=== PATIENT | male | born 1950 | race Caucasian/White ===

== ENCOUNTER 2019-05-24 13:42 | Emergency (ER) | payer MEDICARE, OTHER, MEDICAID ==
[2019-05-24] MEDS ORDERED: Lidocaine 1% 20 ML MDV ONE (13:46)
[2019-05-24 13:54] VITALS: BP 97/49; PULSE 89
[2019-05-24] MEDS ORDERED: Lidocaine 1% 30 ML SDV INJECT ONE (14:00)
[2019-05-24] MEDS ORDERED: Bacitracin/Neomycin/Polymyxin B Oint 0.9 GM U/D Packet ONE (14:13)
--- NOTE | 2019-05-24 14:42 | EDM.PDOC ---
ED HPI GENERAL MEDICAL PROBLEM - General Chief Complaint: Laceration Stated Complaint: laceration Time Seen by Provider: 05/24/19 13:54 Source of Information: Reports: Patient, [facility] Records History Limitations: Reports: No Limitations - History of Present Illness INITIAL COMMENTS - FREE TEXT/NARRATIVE: Patient presents with laceration under his left second toe. He is unsure what happened, has neuropathy in his feet and does not know what he hit to open the toe up. Staff noted that his foot was bleeding. Had laceration on this toe recently and staff reports had just had sutures out and it was healing. Is on Coumadin, [facility] staff was unable to get the bleeding to stop prior to him coming here. EMS was called for transport. He denies pain or injury elsewhere. Onset: Today, Sudden Duration: Minutes: Location: Reports: Lower Extremity, Right Severity: Mild Associated Symptoms: Reports: No Other Symptoms Right Foot Pain Score (Numeric/FACES): 4 - Related Data Allergies Allergy/AdvReac Type Severity Reaction Status Date / Time levofloxacin [From Levaquin] Allergy Cannot Verified 05/24/19 13:21 Remember Home Meds: Home Meds Lisinopril 5 mg PO DAILY 09/23/15 [History] Montelukast [Singulair] 10 mg PO BEDTIME 09/23/15 [History] ARIPiprazole [Aripiprazole] 10 mg PO DAILY 05/24/19 [History] Acetaminophen [Tylenol Extra Strength] 1,000 mg PO Q8H PRN 05/24/19 [History] Aspirin [Aspirin EC] 325 mg PO DAILY 05/24/19 [History] Bisacodyl [Dulcolax] 5 - 10 mg PO DAILY PRN 05/24/19 [History] Dextrose [Glutose 15] 15 - 20 g PO ASDIRECTED PRN 05/24/19 [History] Escitalopram [Lexapro] 10 mg PO DAILY 05/24/19 [History] Glucagon,Human Recombinant [Glucagon Emergency Kit] 1 mg IM DAILY PRN 05/24/19 [ History] Liraglutide [Victoza] 1.2 ml SQ DAILY 05/24/19 [History] Menthol [Biofreeze] 1 applic TOP QID PRN 05/24/19 [History] Polyethylene Glycol 3350 [MiraLAX] 17 gm PO DAILY 05/24/19 [History] Simvastatin 20 mg PO BEDTIME 05/24/19 [History] Warfarin Sodium 7.5 mg PO WESA 05/24/19 [History] Warfarin Sodium 10 mg PO SUMOTUTHFR 05/24/19 [History] busPIRone HCl [busPIRone] 30 mg PO BID 05/24/19 [History] Past Medical History HEENT History: Reports: Cataract Cardiovascular History: Reports: Heart Failure, High Cholesterol, Hypertension Respiratory History: Reports: Asthma Gastrointestinal History: Reports: Chronic Constipation Other Gastrointestinal History: incontinence Neurological History: Reports: CVA, Neuropathy, Diabetic, Speech Problems Other Neuro History: L sided weakness Psychiatric History: Reports: Anxiety, Bipolar, Dementia, Depression, Psychosis , Schizophrenia Endocrine/Metabolic History: Reports: Diabetes, Type II, Obesity/BMI 30+ Oncologic (Cancer) History: Reports: Other (See Below) Other Oncologic History: malignant neoplasm Dermatologic History: Reports: Venous Stasis Dermatitis Other Dermatologic History: LLE - Infectious Disease History Infectious Disease History: Reports: Influenza, MRSA - Past Surgical History HEENT Surgical History: Reports: None Cardiovascular Surgical History: Reports: None Respiratory Surgical History: Reports: None GI Surgical History: Reports: None Endocrine Surgical History: Reports: None Neurological Surgical History: Reports: None Oncologic Surgical History: Reports: None Dermatological Surgical History: Reports: None Social & Family History - Family History Family Medical History: Noncontributory - Tobacco Use Smoking Status *Q: Never Smoker - Caffeine Use Caffeine Use: Reports: Coffee - Recreational Drug Use Recreational Drug Use: No - Living Situation & Occupation Occupation: Retired ED ROS GENERAL - Review of Systems Review Of Systems: ROS reveals no pertinent complaints other than HPI. ED EXAM, SKIN/RASH Exam: See Below Exam Limited By: No Limitations General Appearance: Alert, WD/WN, No Apparent Distress Neurological: Alert, Oriented Skin: Wound/Incision (has 2.5 cm laceration to bottom of right second toe. Oozing continuously. Patient has minimal movement of his toes per his norm) Characteristics: Linear ED SKIN PROCEDURES - Laceration/Wound Repair Right Toe - Second Appearance: Subcutaneous, Linear, Clean Distal NVT: No Tendon Injury Anesthetic Type: Local Local Anesthesia - Lidocaine (Xylocaine): 1% Plain Local Anesthetic Volume: 3cc Skin Prep: Other (saf-clens) Exploration/Debridement/Repair: Wound Explored, Explored to Base Closed with: Sutures Lac/Wound length In cm: 2.5 Suture Size: 4-0 # of Sutures: 5 Suture Type: Nylon, Interrupted, Simple Sterile Dressing Applied: Provider Tetanus Status Addressed: Yes Course - Vital Signs Last Recorded V/S: Last Vital Signs Temp 97.9 F 05/24/19 13:48 Pulse 89 05/24/19 13:48 Resp 20 05/24/19 13:48 BP 97/49 L 05/24/19 13:48 Pulse Ox 98 05/24/19 13:48 - Orders/Labs/Meds Meds: Medications Discontinued Medications Generic Name Dose Route Start Last Admin Trade Name Freq PRN Reason Stop Dose Admin Lidocaine HCl Confirm 05/24/19 13:46 Xylocaine 1% Administered 05/24/19 13:47 Dose 20 ml .ROUTE .STK-MED ONE Neomycin/Polymyxin/Bacitracin Confirm 05/24/19 14:13 Triple Antibiotic Oint Administered 05/24/19 14:14 Dose 1 each .ROUTE .STK-MED ONE Departure - Departure Time of Disposition: 14:44 Disposition: Home, Self-Care 01 Condition: Good Clinical Impression: Broken skin, Laceration of second toe of right foot - Discharge Information *PRESCRIPTION DRUG MONITORING PROGRAM REVIEWED*: No *COPY OF PRESCRIPTION DRUG MONITORING REPORT IN PATIENT GARY: No Additional Instructions: 1. Elevate foot 2. Continue to assess CMS to toe 3. Ice to bottom of foot 4. Keep wound clean and dry 5. Sutures out in 10 days 6. Call with questions or concerns.
[2019-05-24] MEDS ORDERED: Bacitracin/Neomycin/Polymyxin B Oint 0.9 GM U/D Packet TOP ONE (14:47)
== END 2019-05-24 15:20 | disposition home or self-care (01) ==
LOC: CC.ED 13:42
DX: S91.114A Laceration without foreign body of right lesser toe(s) without damage to nail, initial encounter (principal); I11.0 Hypertensive heart disease with heart failure; I50.9 Heart failure, unspecified; E78.00 Pure hypercholesterolemia, unspecified; J45.909 Unspecified asthma, uncomplicated; E11.36 Type 2 diabetes mellitus with diabetic cataract; H26.9 Unspecified cataract; E11.40 Type 2 diabetes mellitus with diabetic neuropathy, unspecified; F32.9 Major depressive disorder, single episode, unspecified; E66.9 Obesity, unspecified; Z88.1 Allergy status to other antibiotic agents; Z79.82 Long term (current) use of aspirin; Z68.43 Body mass index [BMI] 50.0-59.9, adult; Z79.01 Long term (current) use of anticoagulants; Z86.73 Personal history of transient ischemic attack (TIA), and cerebral infarction without residual deficits; Z79.899 Other long term (current) drug therapy; Z79.84 Long term (current) use of oral hypoglycemic drugs; X58.XXXA Exposure to other specified factors, initial encounter
CPT/HCPCS: 12001; 99282; 99283; J2001

== ENCOUNTER 2021-03-21 10:10 | Emergency (ER) | payer MEDICARE, OTHER, MEDICAID ==
[2021-03-21 11:04] LABS: CHLORIDE,CL 100 mEq/L (98-106); SODIUM,NA 137 mEq/L (136-145)
[2021-03-21 11:36] VITALS: BP 138/74; PULSE 87
--- NOTE | 2021-03-21 11:59 | EDM.PDOC ---
ED HPI GENERAL MEDICAL PROBLEM - General Chief Complaint: Respiratory Problem Stated Complaint: SOB Time Seen by Provider: 03/21/21 10:50 Source of Information: Reports: Patient, Long Term Records, RN History Limitations: Reports: No Limitations. Denies: Respiratory Distress - History of Present Illness INITIAL COMMENTS - FREE TEXT/NARRATIVE: Bello is a 70 yo male who is brought into the ED via EMS from [facility] with concerns of low oxygen. They had said he wouldn't leave oxygen on via nasal canula and was dropping into the low 80's. Upon arrival he was 98% on 6 Liters per nasal canula. He denies any chest pain. States he feels his shortness of breath has worsened. Has history of shortness of breath. States the swelling on his legs seems to be getting worse as well. Does live a sedentary lifestyle and is unable to ambulate d/t morbid obesity. Renita Cuello did [facility] him [facility] at the [facility] and increased his Lasix to 40mg twice a day from once a day. - Related Data Allergies Allergy/AdvReac Type Severity Reaction Status Date / Time levofloxacin [From Levaquin] Allergy Cannot Verified 03/22/21 08:57 Remember Home Meds: Home Meds Lisinopril 5 mg PO DAILY 09/23/15 [History] Montelukast [Singulair] 10 mg PO BEDTIME 09/23/15 [History] Acetaminophen [Tylenol Extra Strength] 1,000 mg PO Q8H PRN 05/24/19 [History] Dextrose [Glutose 15] 15 - 20 g PO ASDIRECTED PRN 05/24/19 [History] Glucagon,Human Recombinant [Glucagon Emergency Kit] 1 mg IM DAILY PRN 05/24/19 [History] Liraglutide [Victoza] 1.8 ml SQ DAILY 05/24/19 [History] Menthol [Biofreeze] 1 applic TOP QID PRN 05/24/19 [History] Polyethylene Glycol 3350 [MiraLAX] 17 gm PO DAILY 05/24/19 [History] Simvastatin 20 mg PO BEDTIME 05/24/19 [History] Warfarin Sodium 7.5 mg PO WESA 05/24/19 [History] Warfarin Sodium 10 mg PO SUMOTUTHFR 05/24/19 [History] bisacodyL [Dulcolax] 5 - 10 mg PO DAILY PRN 05/24/19 [History] busPIRone HCl [busPIRone] 30 mg PO BID 05/24/19 [History] ARIPiprazole [Abilify] 20 mg PO DAILY 03/21/21 [History] Cyanocobalamin (Vitamin B-12) [Cyanocobalamin Injection] 1 ml IM ONETIME 03/05 02/22 [History] Furosemide [Lasix] 40 mg PO BID 03/21/21 [History] Insulin Aspart [NovoLOG] 35 units SUBCUT ACBREAKFAST 03/21/21 [History] Insulin Aspart [Novolog Flexpen] 35 units SUBCUT ACLUNCH 03/21/21 [History] Insulin Degludec [Tresiba] 70 units SUBCUT BID 03/21/21 [History] Insulin Lispro [HumaLOG] 40 mg SUBCUT BEDTIME 03/21/21 [History] [place] Carbonate [[place] Carbonate ER] 600 mg PO BEDTIME 03/21/21 [History] polyethylene glycoL 3350 [Gavilax] 8.5 gm PO ACDINNER 03/21/21 [History] Past Medical History HEENT History: Reports: Cataract Cardiovascular History: Reports: Heart Failure, High Cholesterol, Hypertension Respiratory History: Reports: Asthma Gastrointestinal History: Reports: Chronic Constipation Other Gastrointestinal History: incontinence Neurological History: Reports: CVA, Neuropathy, Diabetic, Speech Problems Other Neuro History: L sided weakness Psychiatric History: Reports: Anxiety, Bipolar, Dementia, Depression, Psychosis, Schizophrenia Endocrine/Metabolic History: Reports: Diabetes, Type II, Obesity/BMI 30+ Oncologic (Cancer) History: Reports: Other (See Below) Other Oncologic History: malignant neoplasm Dermatologic History: Reports: Venous Stasis Dermatitis Other Dermatologic History: LLE - Infectious Disease History Infectious Disease History: Reports: Influenza, MRSA - Past Surgical History HEENT Surgical History: Reports: None Cardiovascular Surgical History: Reports: None Respiratory Surgical History: Reports: None GI Surgical History: Reports: None Endocrine Surgical History: Reports: None Neurological Surgical History: Reports: None Oncologic Surgical History: Reports: None Dermatological Surgical History: Reports: None Social & Family History - Family History Family Medical History: No Pertinent Family History - Tobacco Use Tobacco Use Status *Q: Never Tobacco User Second Hand Smoke Exposure: No - Caffeine Use Caffeine Use: Reports: Coffee - Living Situation & Occupation Occupation: Retired ED ROS GENERAL - Review of Systems Review Of Systems: See Below Constitutional: Reports: Weakness, Fatigue. Denies: Fever, Chills HEENT: Reports: No Symptoms Respiratory: Reports: Shortness of Breath. Denies: Wheezing, Cough Cardiovascular: Reports: Edema. Denies: Chest Pain, Lightheadedness, Palpitations GI/Abdominal: Reports: No Symptoms : Reports: No Symptoms Musculoskeletal: Reports: No Symptoms Neurological: Reports: No Symptoms Psychiatric: Reports: No Symptoms ED EXAM, GENERAL - Physical Exam Exam: See Below Exam Limited By: No Limitations General Appearance: Alert, No Apparent Distress, Obese Ears: Normal External Exam, Hearing Grossly Normal Nose: Normal Inspection, No Blood Throat/Mouth: Normal Inspection, Normal Voice, No Airway Compromise Head: Atraumatic, Normocephalic Neck: Normal Inspection, Supple Respiratory/Chest: Decreased Breath Sounds. No: Respiratory Distress, Crackles, Rales, Rhonchi, Wheezing Cardiovascular: Regular Rate, Rhythm, No Murmur Extremities: Pedal Edema (3-4+), Redness (stasis dermatitis noted. ) Neurological: Alert, Normal Cognition Psychiatric: Normal Affect, Normal Mood Skin Exam: Warm, Dry. No: Erythema, Increased Warmth #1 Interpretation EKG Date: 03/21/21 Time: 10:25 Rhythm: NSR Kimball: Normal P-Wave: Present QRS: Normal ST-T: Normal QT: Normal Comparison: No Change Course - Vital Signs Last Recorded V/S: Last Vital Signs Temp 97.9 F 03/21/21 11:33 Pulse 87 03/21/21 11:33 Resp 20 03/21/21 11:33 BP 138/74 03/21/21 11:33 Pulse Ox 99 03/21/21 11:33 - Orders/Labs/Meds Orders: Active Orders 24 hr Category Date Time Status Chest 1V Frontal [CR] Stat Exams 03/21/21 10:15 Taken Labs: Laboratory Tests 03/21/21 03/21/21 Range/Units 10:38 10:38 WBC 8.2 (4.0-11.0) 10^3/uL RBC 5.27 (4.50-6.00) x10^6/uL Hgb 14.6 (14.0-18.0) g/dL Hct 49.4 (42.0-52.0) % MCV 93.7 (83.0-97.0) fL MCH 27.7 (27.0-32.0) pg MCHC 29.6 L (32.0-36.0) g/dL RDW Coeff of Carmencita 18.1 H (11.0-15.0) % Plt Count 208 (150-400) 10^3/uL Immature Gran % (Auto) 0.1 (0.0-4.9) % Neut % (Auto) 72.6 H (41-71) % Lymph % (Auto) 16.2 L (24-44) % [place] % (Auto) 7.7 (0-10) % Eos % (Auto) 2.8 (0-6) % Baso % (Auto) 0.6 (0-1) % Neut # (Auto) 5.91 (1.80-8.00) x10^3/uL Lymph # (Auto) 1.32 (0.60-5.00) 10^3/uL [place] # (Auto) 0.63 (0.00-1.50) 10^3/uL Eos # (Auto) 0.23 (0.00-1.50) 10^3/uL Baso # (Auto) 0.05 (0.00-0.50) 10^3/uL Immature Gran # (Auto) 0.01 (0.00-0.49) 10^3/uL Sodium 137 (136-145) mEq/L Potassium 4.5 (3.5-5.0) mEq/L Chloride 100 (98-106) mEq/L Carbon Dioxide 38 H (21-32) mmol/L BUN 15 (7-18) mg/dL Creatinine 0.9 (0.7-1.3) mg/dL Est Cr Clr Drug Dosing 99.00 mL/min Estimated GFR (MDRD) > 60 (>=60) mL/min Glucose 94 D (75-99) mg/dL Calcium 7.9 L (8.4-10.1) mg/dL Magnesium 2.2 (1.8-2.4) mg/dL Total Bilirubin 0.9 (0.0-1.0) mg/dL AST 103 H (15-37) U/L ALT 43 (12-78) U/L Alkaline Phosphatase 88 (46-116) U/L Troponin I < 0.017 (0.00-0.06) ng/mL NT-Pro-B Natriuret Pep 122 (0-1000) pg/mL Total Protein 7.5 (6.4-8.2) g/dL Albumin 2.8 L (3.4-5.0) g/dL Departure - Departure Time of Disposition: 11:57 Disposition: Home, Self-Care 01 Clinical Impression: Congenital heart disease in adult - Discharge Information Instructions: Hypoxia, Shortness of Breath, Adult, [id number] Referrals: José Miguel Miner MD [Primary Care Provider] - Forms: ED Department Discharge Additional Instructions: 1) No change in medications. Continue with Lasix 40mg orally twice a day 2) Continue with oxygen via nasal cannula to keep sats greater than 90% 3) Laboratory work up, EKG and chest x-ray were all stable today, no concerning findings. 4) [facility] back to [facility] and if any concerns, advise returning for reevaluation. Sepsis Event Note (ED) - Evaluation Sepsis Screening Result: No Definite Risk - Problem List & Annotations (1) Hypoxia SNOMED Code(s): 612354355 Code(s): R09.02 - HYPOXEMIA Status: Acute (2) Morbid obesity SNOMED Code(s): 089155675 Code(s): E66.01 - MORBID (SEVERE) OBESITY DUE TO EXCESS CALORIES Status: Acute - My Orders Last 24 Hours: My Active Orders 03/21/21 10:15 Chest 1V Frontal [CR] Stat - Assessment/Plan Last 24 Hours: My Active Orders 03/21/21 10:15 Chest 1V Frontal [CR] Stat Plan: Patient underwent cardiac work up which was negative today. EKG showed normal sinus rhythm. Chest x-ray negative for any acute cardiopulmonary findings via radiologist. Unfortunately, patient does live a sedentary lifestyle. Has been stable on oxygen and discussed with Bello the importance of keeping on. ProBNP was normal today, negative for CHF exacerbation. Initally considered adding Metolazone 2.5mg daily; However with just changing Lasix dose yesterday, will wait on any further changes. Patient has been stable during entire time in ED with oxygen saturations remaining mid 90's and being able to turning down to 4 Liters per nasal canula. Will [facility] back to [facility] at this time.
== END 2021-03-21 12:31 | disposition home or self-care (01) ==
LOC: CC.ED 10:10
DX: I11.0 Hypertensive heart disease with heart failure (principal); I50.9 Heart failure, unspecified; E78.00 Pure hypercholesterolemia, unspecified; E11.40 Type 2 diabetes mellitus with diabetic neuropathy, unspecified; E66.9 Obesity, unspecified; Z68.30 Body mass index [BMI] 30.0-30.9, adult; Z86.73 Personal history of transient ischemic attack (TIA), and cerebral infarction without residual deficits; Z88.1 Allergy status to other antibiotic agents; Z79.899 Other long term (current) drug therapy; Z79.01 Long term (current) use of anticoagulants; Z79.4 Long term (current) use of insulin
CPT/HCPCS: 36415; 71045; 80053; 83735; 83880; 84484; 85025; 93005; 93010; 99283; 99285-25

== ENCOUNTER 2021-03-22 08:56 | Emergency (ER) | payer MEDICARE, OTHER, MEDICAID ==
[2021-03-22] MEDS ORDERED: 50% Dextrose in Water 50 ML Syringe IVPUSH ONE (08:59)
[2021-03-22 09:20] VITALS: BP 100/65; PULSE 93
[2021-03-22] MEDS ORDERED: Furosemide 40 MG/4 ML VIAL IVPUSH ONE ×2 (09:29→17:17)
--- NOTE | 2021-03-22 09:31 | EDM.PDOC ---
ED HPI GENERAL MEDICAL PROBLEM - General Chief Complaint: General Stated Complaint: low blood sugar Time Seen by Provider: 03/22/21 09:16 Source of Information: Reports: Patient History Limitations: Reports: No Limitations - History of Present Illness INITIAL COMMENTS - FREE TEXT/NARRATIVE: Bello is a 70 yo male who presents to the ED from [facility]. Apparently the last week patient has had a decline in health status, requiring oxygen. Patient is DNR. This morning Dr. Miner was rounding at [facility] and recommended he be sent to ED for evaluation. Upon arrival blood glucose was in the 50s. Patient was given D50 1 amp. Blood glucose increased to 139. Patient was alert and oriented at time of my exam. Does admit to SOB but denies any other concerns. Per [facility] staff, patient has very poor diet. Over the weekend he was found to have eaten 2 bags of jerky, 2 large pizzas etc. and apparently from Saturday to Saturday had a 20 lb weight gain. Apparently this extreme diet is nothing new for patient. Since that time O2 sats have been low and patient has been much more swollen. He did recently have his PO lasix increased to 40 mg PO BID but continues to be up approximately 20 lbs in weight the last week. Patient does feel SOB. He denies any cough or chest pain. He was seen and evaluated in the ED yesterday. Lab work was unremarkable, including proBNP which was 122. PO lasix had just recently been increased so no further changes were made at that time. He does have chronic 1-2+ pitting edema to BLE with chronic stasis changes. Associated Symptoms: Reports: No Other Symptoms, Shortness of Breath, Weakness (chronic). Denies: Confusion, Chest Pain, Cough, cough w sputum, Diaphoresis, Fever/Chills, Headaches, Loss of Appetite, Malaise, Nausea/Vomiting, Rash, Seizure, Syncope - Related Data Allergies Allergy/AdvReac Type Severity Reaction Status Date / Time levofloxacin [From Levaquin] Allergy Cannot Verified 03/22/21 08:57 Remember Home Meds: Home Meds Lisinopril 5 mg PO DAILY 09/23/15 [History] Montelukast [Singulair] 10 mg PO BEDTIME 09/23/15 [History] Acetaminophen [Tylenol Extra Strength] 1,000 mg PO Q8H PRN 05/24/19 [History] Dextrose [Glutose 15] 15 - 20 g PO ASDIRECTED PRN 05/24/19 [History] Glucagon,Human Recombinant [Glucagon Emergency Kit] 1 mg IM DAILY PRN 05/24/19 [History] Liraglutide [Victoza] 1.8 ml SQ DAILY 05/24/19 [History] Menthol [Biofreeze] 1 applic TOP QID PRN 05/24/19 [History] Polyethylene Glycol 3350 [MiraLAX] 17 gm PO DAILY 05/24/19 [History] Simvastatin 20 mg PO BEDTIME 05/24/19 [History] Warfarin Sodium 7.5 mg PO WESA 05/24/19 [History] Warfarin Sodium 10 mg PO SUMOTUTHFR 05/24/19 [History] bisacodyL [Dulcolax] 5 - 10 mg PO DAILY PRN 05/24/19 [History] busPIRone HCl [busPIRone] 30 mg PO BID 05/24/19 [History] ARIPiprazole [Abilify] 20 mg PO DAILY 03/21/21 [History] Cyanocobalamin (Vitamin B-12) [Cyanocobalamin Injection] 1 ml IM ONETIME 03/21/21 [History] Furosemide [Lasix] 40 mg PO BID 03/21/21 [History] Insulin Aspart [NovoLOG] 35 units SUBCUT ACBREAKFAST 03/21/21 [History] Insulin Aspart [Novolog Flexpen] 35 units SUBCUT ACLUNCH 03/21/21 [History] Insulin Degludec [Tresiba] 70 units SUBCUT BID 03/21/21 [History] Insulin Lispro [HumaLOG] 40 mg SUBCUT BEDTIME 03/21/21 [History] Steger Carbonate [Steger Carbonate ER] 600 mg PO BEDTIME 03/21/21 [History] polyethylene glycoL 3350 [Gavilax] 8.5 gm PO ACDINNER 03/21/21 [History] Past Medical History HEENT History: Reports: Cataract Cardiovascular History: Reports: Heart Failure, High Cholesterol, Hypertension Respiratory History: Reports: Asthma Gastrointestinal History: Reports: Chronic Constipation Other Gastrointestinal History: incontinence Neurological History: Reports: CVA, Neuropathy, Diabetic, Speech Problems Other Neuro History: L sided weakness Psychiatric History: Reports: Anxiety, Bipolar, Dementia, Depression, Psychosis, Schizophrenia Endocrine/Metabolic History: Reports: Diabetes, Type II, Obesity/BMI 30+ Oncologic (Cancer) History: Reports: Other (See Below) Other Oncologic History: malignant neoplasm Dermatologic History: Reports: Venous Stasis Dermatitis Other Dermatologic History: LLE - Infectious Disease History Infectious Disease History: Reports: Influenza, MRSA - Past Surgical History HEENT Surgical History: Reports: None Cardiovascular Surgical History: Reports: None Respiratory Surgical History: Reports: None GI Surgical History: Reports: None Endocrine Surgical History: Reports: None Neurological Surgical History: Reports: None Oncologic Surgical History: Reports: None Dermatological Surgical History: Reports: None Social & Family History - Family History Family Medical History: No Pertinent Family History - Tobacco Use Tobacco Use Status *Q: Never Tobacco User Second Hand Smoke Exposure: No - Caffeine Use Caffeine Use: Reports: Coffee - Living Situation & Occupation Occupation: Retired ED ROS GENERAL - Review of Systems Review Of Systems: Comprehensive ROS is negative, except as noted in HPI. ED EXAM, GENERAL - Physical Exam Exam: See Below Exam Limited By: No Limitations General Appearance: Alert, WD/WN, No Apparent Distress Eye Exam: Bilateral Eye: EOMI, Normal Fundi, Normal Inspection, PERRL Head: Atraumatic, Normocephalic Neck: Normal Inspection, Supple, Non-Tender, Full Range of Motion Respiratory/Chest: No Respiratory Distress, No Accessory Muscle Use, Chest Non- Tender, Decreased Breath Sounds. No: Crackles, Rales, Rhonchi, Wheezing, Accessory Muscle Use Cardiovascular: Regular Rate, Rhythm, No Murmur GI/Abdominal: Normal Bowel Sounds, Soft, Non-Tender, No Organomegaly, No Distention, No Abnormal Bruit, No Mass, Other (morbidly obese) Extremities: Non-Tender, Other (2-3+ pitting edema BLE, chronic stasis dermatitis noted to BLE from mid [place] down ). No: Increased Warmth Neurological: Alert, Oriented, Normal Cognition, No Motor/Sensory Deficits Psychiatric: Normal Affect, Normal Mood Course - Vital Signs Last Recorded V/S: Last Vital Signs Temp 98.2 F 03/22/21 09:26 Pulse 93 03/22/21 09:26 Resp 19 03/22/21 09:26 BP 100/65 03/22/21 09:26 Pulse Ox 96 03/22/21 09:26 - Orders/Labs/Meds Labs: Laboratory Tests 03/22/21 03/22/21 03/22/21 Range/Units 09:25 09:40 09:40 WBC 8.1 (4.0-11.0) 10^3/uL RBC 5.22 (4.50-6.00) x10^6/uL Hgb 14.7 (14.0-18.0) g/dL Hct 48.8 (42.0-52.0) % MCV 93.5 (83.0-97.0) fL MCH 28.2 (27.0-32.0) pg MCHC 30.1 L (32.0-36.0) g/dL RDW Coeff of Carmencita 17.9 H (11.0-15.0) % Plt Count 223 (150-400) 10^3/uL Immature Gran % (Auto) 0.2 (0.0-4.9) % Neut % (Auto) 79.9 H (41-71) % Lymph % (Auto) 11.8 L (24-44) % Atkinson % (Auto) 5.9 (0-10) % Eos % (Auto) 1.7 (0-6) % Baso % (Auto) 0.5 (0-1) % Neut # (Auto) 6.45 (1.80-8.00) x10^3/uL Lymph # (Auto) 0.95 (0.60-5.00) 10^3/uL Atkinson # (Auto) 0.48 (0.00-1.50) 10^3/uL Eos # (Auto) 0.14 (0.00-1.50) 10^3/uL Baso # (Auto) 0.04 (0.00-0.50) 10^3/uL Immature Gran # (Auto) 0.02 (0.00-0.49) 10^3/uL Sodium 134 L (136-145) mEq/L Potassium 4.6 (3.5-5.0) mEq/L Chloride 97 L (98-106) mEq/L Carbon Dioxide 37 H (21-32) mmol/L BUN 18 (7-18) mg/dL Creatinine 0.9 (0.7-1.3) mg/dL Est Cr Clr Drug Dosing 91.33 mL/min Estimated GFR (MDRD) > 60 (>=60) mL/min Glucose 176 H D (75-99) mg/dL POC Glucose 99 (75-105) mg/dL Calcium 7.8 L (8.4-10.1) mg/dL Troponin I < 0.017 (0.00-0.06) ng/mL C-Reactive Protein 3.2 H (0.2-0.8) mg/dL NT-Pro-B Natriuret Pep 63 (0-1000) pg/mL 03/22/21 03/22/21 Range/Units 09:46 10:48 WBC (4.0-11.0) 10^3/uL RBC (4.50-6.00) x10^6/uL Hgb (14.0-18.0) g/dL Hct (42.0-52.0) % MCV (83.0-97.0) fL MCH (27.0-32.0) pg MCHC (32.0-36.0) g/dL RDW Coeff of Carmencita (11.0-15.0) % Plt Count (150-400) 10^3/uL Immature Gran % (Auto) (0.0-4.9) % Neut % (Auto) (41-71) % Lymph % (Auto) (24-44) % Atkinson % (Auto) (0-10) % Eos % (Auto) (0-6) % Baso % (Auto) (0-1) % Neut # (Auto) (1.80-8.00) x10^3/uL Lymph # (Auto) (0.60-5.00) 10^3/uL Atkinson # (Auto) (0.00-1.50) 10^3/uL Eos # (Auto) (0.00-1.50) 10^3/uL Baso # (Auto) (0.00-0.50) 10^3/uL Immature Gran # (Auto) (0.00-0.49) 10^3/uL Sodium (136-145) mEq/L Potassium (3.5-5.0) mEq/L Chloride (98-106) mEq/L Carbon Dioxide (21-32) mmol/L BUN (7-18) mg/dL Creatinine (0.7-1.3) mg/dL Est Cr Clr Drug Dosing mL/min Estimated GFR (MDRD) (>=60) mL/min Glucose (75-99) mg/dL POC Glucose 139 H 109 H (75-105) mg/dL Calcium (8.4-10.1) mg/dL Troponin I (0.00-0.06) ng/mL C-Reactive Protein (0.2-0.8) mg/dL NT-Pro-B Natriuret Pep (0-1000) pg/mL Meds: Medications Discontinued Medications Generic Name Dose Route Start Last Admin Trade Name Ikeq PRN Reason Stop Dose Admin Dextrose/Water 50 ml 03/22/21 08:59 03/22/21 09:06 50% Dextrose In Water 50 Ml Syringe IVPUSH 03/22/21 09:00 50 ml ONETIME ONE Administration Furosemide 40 mg 03/22/21 09:29 03/22/21 09:41 Furosemide 40 Mg/4 Ml Vial IVPUSH 03/22/21 09:30 40 mg ONETIME ONE Administration Furosemide 120 mg 03/22/21 17:17 03/22/21 17:23 Furosemide 40 Mg/4 Ml Vial IVPUSH 03/22/21 17:18 120 mg ONETIME ONE Administration Departure - Departure Time of Disposition: 11:02 Disposition: Home, Self-Care 01 Condition: Fair Clinical Impression: Morbid obesity, Hypoxia Fluid overload, unspecified Qualifiers: Hypervolemia type: unspecified Qualified Code(s): E87.70 - Fluid overload, unspecified RLL pneumonia Qualifiers: Pneumonia type: due to unspecified organism Qualified Code(s): J18.9 - Pneumonia, unspecified organism - Discharge Information *PRESCRIPTION DRUG MONITORING PROGRAM REVIEWED*: Not Applicable *COPY OF PRESCRIPTION DRUG MONITORING REPORT IN PATIENT GARY: Not Applicable Referrals: José Miguel Miner MD [Primary Care Provider] - Forms: ED Department Discharge Additional Instructions: - Recommend 40 mg Lasix (furosemide) IVP BID x 3 days. Patient did receive 1 dose while in ED this morning and 2 PIV were placed. Recommend additional dose be given at 1600 today 03/22/21 and then 0800 and 1600 the next 2 days. After 3 days of IV Lasix, reduce back down to previous dosing. - Recommend checking daily weights on patient the next 3 days - If possible, attempt to limit patients dietary sodium intake to avoid ongoing fluid retention - Continue to spot check SpO2. Titrate O2 to maintain O2 sats > 90% - Rocephin and Azithromycin orders sent to SNF due to possible infiltrate in RLL from CXR completed 03/21/2021 - Notify PCP of any ongoing concerns/issues - May resume previous insulin dosing as patient ate large breakfast while in ED and blood glucose elevated - Return to ED for emergent needs Sepsis Event Note (ED) - Evaluation Sepsis Screening Result: No Definite Risk - Problem List & Annotations (1) RLL pneumonia SNOMED Code(s): 009392604 Code(s): J18.9 - PNEUMONIA, UNSPECIFIED ORGANISM Status: Acute Qualifiers: Pneumonia type: due to unspecified organism Qualified Code(s): J18.9 - Pneumonia, unspecified organism (2) Fluid overload, unspecified SNOMED Code(s): 94381694 Code(s): E87.70 - FLUID OVERLOAD, UNSPECIFIED Status: Acute Qualifiers: Hypervolemia type: unspecified Qualified Code(s): E87.70 - Fluid overload, unspecified (3) Hypoxia SNOMED Code(s): 469702901 Code(s): R09.02 - HYPOXEMIA Status: Acute (4) Morbid obesity SNOMED Code(s): 069636701 Code(s): E66.01 - MORBID (SEVERE) OBESITY DUE TO EXCESS CALORIES Status: Acute - Problem List Review Problem List Initiated/Reviewed/Updated: Yes - Assessment/Plan Assessment:: RLL Pneumonia Fluid Overload due to excessive sodium intake Morbid Obesity Hypoxia Plan: Will switch PO lasix to IV lasix for the next 3 days in attempt to diurese patient. Patient may resume previous insulin dosing due to his excessive food intake. Continue to monitor Accu Checks per protocol at [facility]. Did review CXR from yesterday. Does reveal patchy airspace opacities in RLL and right perihilar region. Will cover with Rocephin and azithromycin. Orders sent to SNF. Remainder of plan as noted above. Transfer back to [facility] via ambulance was not medically necessary. Patient transferred via EMS due to morbid obesity and difficult transfer. Patient disc harged from facility in stable condition.
[2021-03-22 10:04] LABS: CHLORIDE,CL 97 mEq/L (98-106); SODIUM,NA 134 mEq/L (136-145)
== END 2021-03-22 12:05 | disposition home or self-care (01) ==
LOC: CC.ED 08:56
DX: J18.9 Pneumonia, unspecified organism (principal); R09.02 Hypoxemia; E87.70 Fluid overload, unspecified; I11.0 Hypertensive heart disease with heart failure; I50.9 Heart failure, unspecified; E78.00 Pure hypercholesterolemia, unspecified; J45.909 Unspecified asthma, uncomplicated; E11.40 Type 2 diabetes mellitus with diabetic neuropathy, unspecified; F03.90 Unspecified dementia, unspecified severity, without behavioral disturbance, psychotic disturbance, mood disturbance, and anxiety; E66.01 Morbid (severe) obesity due to excess calories; Z68.44 Body mass index [BMI] 60.0-69.9, adult; Z88.1 Allergy status to other antibiotic agents; Z79.4 Long term (current) use of insulin; Z79.01 Long term (current) use of anticoagulants; Z79.899 Other long term (current) drug therapy
CPT/HCPCS: 36415; 80048; 82947; 83880; 84484; 85025; 86140; 93005; 93010; 96374; 96375; 96376; 99284; 99285-25; J1940

== ENCOUNTER 2021-04-20 16:15 | Inpatient (IN) | payer MEDICARE, OTHER, MEDICAID ==
[~2021-04-20 16:15] MED LIST: Furosemide 40 MG/4 ML VIAL ONE
[2021-04-20] MEDS ORDERED: Sodium Chloride 0.9% 500 ML ONE (16:57)
[2021-04-20] MEDS ORDERED: Sodium Chloride 0.9% 500 ML IV ONE (17:23)
--- NOTE | 2021-04-20 18:49 | EDM.PDOC ---
ED HPI GENERAL MEDICAL PROBLEM - General Chief Complaint: General Stated Complaint: Hematemesis x1 Time Seen by Provider: 04/20/21 16:40 Source of Information: Reports: [facility] (nurse Catherine), RN History Limitations: Reports: Altered Mental Status - History of Present Illness INITIAL COMMENTS - FREE TEXT/NARRATIVE: [facility] staff reports that he has been vomiting all night on and off. Started with yellow and then progressed to green emesis and then about 1530 he had black emesis. He has not ate today but has been taking some sprite and water. Insulin is held today per Dr. Miner. When arriving here He was having some labored breathing that was gurgling. He was alert and oriented and did call this provider by name. When questioned about code status he relates that he does not want CPR or to be intubated. YASMIN states that is what his code status that he signed while there also. He denied any pain. Abdomen was distended. No bowel sounds heard. He is requesting to drink. Respirations are wet sounding and labored. O2 sats in the low 90's on NC. Switched to NR mask and sats did go to the mid 90's. Attempted to place hansen but was unable. YASMIN ques tioned about family being notified. They relate that he is his own guardian and he does not want anyone notified of his condition until he dies and then can notify his children which he is estranged from. Lawrence Obando discussed case and he did review the CXR. He states that with aspiration no antibiotics are recommended unless he develops pneumonia and no steroids are recommended at this time. He did recommend fluid bolus to try and bring down the tachycardia. He did have large black emesis and NG was placed and 2000+ ml were returned immediately. Pt will be admitted to acute care with palliative care as he is very critical and is no cpr, no intubation pt. Onset: Today - Related Data Allergies Allergy/AdvReac Type Severity Reaction Status Date / Time levofloxacin [From Levaquin] Allergy Cannot Verified 03/22/21 08:57 Remember Home Meds: Home Meds Lisinopril 5 mg PO DAILY 09/23/15 [History] Montelukast [Singulair] 10 mg PO BEDTIME 09/23/15 [History] Acetaminophen [Tylenol Extra Strength] 1,000 mg PO Q8H PRN 05/24/19 [History] Dextrose [Glutose 15] 15 - 20 g PO ASDIRECTED PRN 05/24/19 [History] Glucagon,Human Recombinant [Glucagon Emergency Kit] 1 mg IM DAILY PRN 05/24/19 [History] Liraglutide [Victoza] 1.8 ml SQ DAILY 05/24/19 [History] Menthol [Biofreeze] 1 applic TOP QID PRN 05/24/19 [History] Polyethylene Glycol 3350 [MiraLAX] 17 gm PO DAILY 05/24/19 [History] Simvastatin 20 mg PO BEDTIME 05/24/19 [History] Warfarin Sodium 7.5 mg PO WESA 05/24/19 [History] Warfarin Sodium 10 mg PO SUMOTUTHFR 05/24/19 [History] bisacodyL [Dulcolax] 5 - 10 mg PO DAILY PRN 05/24/19 [History] busPIRone HCl [busPIRone] 30 mg PO BID 05/24/19 [History] ARIPiprazole [Abilify] 20 mg PO DAILY 03/21/21 [History] Cyanocobalamin (Vitamin B-12) [Cyanocobalamin Injection] 1 ml IM ONETIME 03/21/21 [History] Furosemide [Lasix] 40 mg PO BID 03/21/21 [History] Insulin Aspart [NovoLOG] 35 units SUBCUT ACBREAKFAST 03/21/21 [History] Insulin Aspart [Novolog Flexpen] 35 units SUBCUT ACLUNCH 03/21/21 [History] Insulin Degludec [Tresiba] 70 units SUBCUT BID 03/21/21 [History] Insulin Lispro [HumaLOG] 40 mg SUBCUT BEDTIME 03/21/21 [History] [place] Carbonate [[place] Carbonate ER] 600 mg PO BEDTIME 03/21/21 [History] polyethylene glycoL 3350 [Gavilax] 8.5 gm PO ACDINNER 03/21/21 [History] Past Medical History HEENT History: Reports: Cataract Cardiovascular History: Reports: Heart Failure, High Cholesterol, Hypertension Respiratory History: Reports: Asthma Gastrointestinal History: Reports: Chronic Constipation Other Gastrointestinal History: incontinence Neurological History: Reports: CVA, Neuropathy, Diabetic, Speech Problems Other Neuro History: L sided weakness Psychiatric History: Reports: Anxiety, Bipolar, Dementia, Depression, Psychosis, Schizophrenia Endocrine/Metabolic History: Reports: Diabetes, Type II, Obesity/BMI 30+ Oncologic (Cancer) History: Reports: Other (See Below) Other Oncologic History: malignant neoplasm Dermatologic History: Reports: Venous Stasis Dermatitis Other Dermatologic History: LLE - Infectious Disease History Infectious Disease History: Reports: Influenza, MRSA - Past Surgical History HEENT Surgical History: Reports: None Cardiovascular Surgical History: Reports: None Respiratory Surgical History: Reports: None GI Surgical History: Reports: None Endocrine Surgical History: Reports: None Neurological Surgical History: Reports: None Oncologic Surgical History: Reports: None Dermatological Surgical History: Reports: None Social & Family History - Family History Family Medical History: No Pertinent Family History - Caffeine Use Caffeine Use: Reports: Coffee - Living Situation & Occupation Occupation: Retired ED ROS GENERAL - Review of Systems Review Of Systems: See Below Constitutional: Reports: Fever. Denies: Chills HEENT: Reports: No Symptoms Respiratory: Reports: Shortness of Breath, Other (tachypnea) Cardiovascular: Reports: No Symptoms GI/Abdominal: Reports: Distension, Hematemesis, Vomiting Neurological: Denies: Confusion ED EXAM, GENERAL - Physical Exam Exam: See Below Exam Limited By: Respiratory Distress General Appearance: Alert, Lethargic Head: Atraumatic, Normocephalic Respiratory/Chest: Respiratory Distress, Decreased Breath Sounds, Rhonchi Cardiovascular: Tachycardia GI/Abdominal: Distended, Other (No bowel sounds heard.) Neurological: Alert, Oriented Skin Exam: Warm, Dry Course - Vital Signs Last Recorded V/S: Last Vital Signs Temp 99.8 F 04/20/21 19:01 Pulse 144 H 04/20/21 19:01 Resp 36 H 04/20/21 19:01 BP 106/75 04/20/21 19:01 Pulse Ox 92 L 04/20/21 19:01 - Orders/Labs/Meds Orders: Active Orders 24 hr Category Date Time Status Chest 1V Frontal [CR] Stat Exams 04/20/21 16:30 Taken Medication Orders Dextrose/Sodium Chloride (Dextrose 5%-/4 Ns) 1,000 mls @ 125 mls/hr IV ASDIRECTED LOLA Pantoprazole Sodium (Pantoprazole 40 Mg Vial) 40 mg IVPUSH Q12H LOLA Phytonadione (Phytonadione 10 Mg/1 Ml Amp) 5 mg SUBCUT NOW ONE Stop: 04/20/21 19:26 Labs: Laboratory Tests 04/20/21 04/20/21 04/20/21 Range/Units 16:31 16:31 16:32 WBC 4.0 (4.0-11.0) 10^3/uL RBC 6.32 H (4.50-6.00) x10^6/uL Hgb 17.7 (14.0-18.0) g/dL Hct 55.9 H (42.0-52.0) % MCV 88.4 (83.0-97.0) fL MCH 28.0 (27.0-32.0) pg MCHC 31.7 L (32.0-36.0) g/dL RDW Coeff of Carmencita 18.3 H (11.0-15.0) % Plt Count 313 (150-400) 10^3/uL Immature Gran % (Auto) 0.2 (0.0-4.9) % Neut % (Auto) 72.7 H (41-71) % Lymph % (Auto) 11.4 L (24-44) % Collin % (Auto) 15.2 H (0-10) % Eos % (Auto) 0.0 (0-6) % Baso % (Auto) 0.5 (0-1) % Neut # (Auto) 2.92 (1.80-8.00) x10^3/uL Lymph # (Auto) 0.46 L (0.60-5.00) 10^3/uL Collin # (Auto) 0.61 (0.00-1.50) 10^3/uL Eos # (Auto) 0.00 (0.00-1.50) 10^3/uL Baso # (Auto) 0.02 (0.00-0.50) 10^3/uL Immature Gran # (Auto) 0.01 (0.00-0.49) 10^3/uL PT 42.6 H (9.7-12.3) SEC INR 4.30 H* (0.92-1.18) Sodium (136-145) mEq/L Potassium (3.5-5.0) mEq/L Chloride (98-106) mEq/L Carbon Dioxide (21-32) mmol/L BUN (7-18) mg/dL Creatinine (0.7-1.3) mg/dL Est Cr Clr Drug Dosing mL/min Estimated GFR (MDRD) (>=60) mL/min Glucose (75-99) mg/dL Lactic Acid 2.3 H (0.4-2.0) mmol/L Calcium (8.4-10.1) mg/dL Magnesium (1.8-2.4) mg/dL Total Bilirubin (0.0-1.0) mg/dL AST (15-37) U/L ALT (12-78) U/L Alkaline Phosphatase (46-116) U/L Troponin I High Sens (<=76) pg/mL NT-Pro-B Natriuret Pep (0-1000) pg/mL Total Protein (6.4-8.2) g/dL Albumin (3.4-5.0) g/dL 04/20/21 Range/Units 16:32 WBC (4.0-11.0) 10^3/uL RBC (4.50-6.00) x10^6/uL Hgb (14.0-18.0) g/dL Hct (42.0-52.0) % MCV (83.0-97.0) fL MCH (27.0-32.0) pg MCHC (32.0-36.0) g/dL RDW Coeff of Carmencita (11.0-15.0) % Plt Count (150-400) 10^3/uL Immature Gran % (Auto) (0.0-4.9) % Neut % (Auto) (41-71) % Lymph % (Auto) (24-44) % Collin % (Auto) (0-10) % Eos % (Auto) (0-6) % Baso % (Auto) (0-1) % Neut # (Auto) (1.80-8.00) x10^3/uL Lymph # (Auto) (0.60-5.00) 10^3/uL Collin # (Auto) (0.00-1.50) 10^3/uL Eos # (Auto) (0.00-1.50) 10^3/uL Baso # (Auto) (0.00-0.50) 10^3/uL Immature Gran # (Auto) (0.00-0.49) 10^3/uL PT (9.7-12.3) SEC INR (0.92-1.18) Sodium 137 (136-145) mEq/L Potassium 4.1 (3.5-5.0) mEq/L Chloride 95 L (98-106) mEq/L Carbon Dioxide 29 (21-32) mmol/L BUN 32 H D (7-18) mg/dL Creatinine 1.9 H D (0.7-1.3) mg/dL Est Cr Clr Drug Dosing 44.47 mL/min Estimated GFR (MDRD) 35 L (>=60) mL/min Glucose 137 H (75-99) mg/dL Lactic Acid (0.4-2.0) mmol/L Calcium 8.7 (8.4-10.1) mg/dL Magnesium 2.5 H (1.8-2.4) mg/dL Total Bilirubin 1.5 H (0.0-1.0) mg/dL AST 41 H (15-37) U/L ALT 46 (12-78) U/L Alkaline Phosphatase 110 (46-116) U/L Troponin I High Sens 5.6 (<=76) pg/mL NT-Pro-B Natriuret Pep 159 (0-1000) pg/mL Total Protein 9.7 H (6.4-8.2) g/dL Albumin 3.6 (3.4-5.0) g/dL Meds: Medications Generic Name Dose Route Start Last Admin Trade Name Freq PRN Reason Stop Dose Admin Dextrose/Sodium Chloride 1,000 mls @ 125 mls/hr 04/20/21 19:30 Dextrose 5%-1/4 Ns IV ASDIRECTED LOLA Pantoprazole Sodium 40 mg 04/20/21 19:15 Pantoprazole 40 Mg Vial IVPUSH Q12H LOLA Phytonadione 5 mg 04/20/21 19:25 Phytonadione 10 Mg/1 Ml Amp SUBCUT 04/20/21 19:26 NOW ONE Discontinued Medications Generic Name Dose Route Start Last Admin Trade Name Freq PRN Reason Stop Dose Admin Furosemide Confirm 04/20/21 16:14 04/20/21 17:02 Furosemide 40 Mg/4 Ml Vial Administered 04/20/21 16:15 80 mg Dose Administration 80 mg .ROUTE .STK-MED ONE Sodium Chloride Confirm 04/20/21 16:57 04/20/21 17:23 Normal Saline Administered 04/20/21 16:58 Not Given Dose 500 mls @ as directed .ROUTE .STK-MED ONE Sodium Chloride 500 mls @ 500 mls/hr 04/20/21 17:23 04/20/21 17:24 Normal Saline IV 04/20/21 18:22 500 mls/hr ONETIME ONE Administration - Re-Assessments/Exams Free Text/Narrative Re-Assessment/Exam: 04/20/21 [address] Miner via phone. He is no code pt. will admit with type and screen 2 units of blood. Give Vitamin K tonight, IV bolus to try and bring heart rate down, IV protonix, Paliative care. He is in agreement of the above. 2000 Multiple attempts have been to drawn blood for type and screen and blood cultures and reflex lactic acid level and not able to get blood source at this time. Will attempt in the morning with different staff. Departure - Departure Time of Disposition: 19:00 Disposition: Admitted As Inpatient 68 Condition: Critical Clinical Impression: Respiratory distress, acute, [place] (acute kidney injury), Hypercoagulable state GI bleed Qualifiers: GI bleed type/associated pathology: unspecified gastrointestinal hemorrhage type Qualified Code(s): K92.2 - Gastrointestinal hemorrhage, unspecified Obesity, BMI not known Qualifiers: Obesity type: due to excess calories Obesity classification: adult class 3 (BMI >= 40) Serious obesity comorbidity presence: with serious comorbidity Body mass index: unspecified BMI Qualified Code(s): E66.01 - Morbid (severe) obesity due to excess calories Diabetes mellitus Qualifiers: Diabetes mellitus type: type 2 Diabetes mellitus retirement insulin use: with loading machine tool setter use Diabetes mellitus complication status: with kidney complications Diabetes mellitus complication detail: with chronic kidney disease Chronic kidney disease stage: unspecified stage Qualified Code(s): E11.22 - Type 2 diabetes mellitus with diabetic chronic kidney disease; Z79.4 - collection systems modeler (current) use of insulin Clinical Impression: (Ruled Out): Obesity with body mass index of 30.0-39.9 - Discharge Information *PRESCRIPTION DRUG MONITORING PROGRAM REVIEWED*: Not Applicable *COPY OF PRESCRIPTION DRUG MONITORING REPORT IN PATIENT GARY: Not Applicable Sepsis Event Note (ED) - Evaluation Sepsis Screening Result: No Definite Risk - Focused Exam Vital Signs: Vital Signs Temp Pulse Resp BP Pulse Ox 04/20/21 17:50 100.2 F 134 H 36 H 111/69 95 04/20/21 16:17 97.8 F 133 H 36 H 114/64 81 L - Problem List & Annotations (1) Respiratory distress, acute SNOMED Code(s): 304344974 Code(s): R06.03 - ACUTE RESPIRATORY DISTRESS Status: Acute Priority: High Current Visit: Yes (2) GI bleed SNOMED Code(s): 40440027 Code(s): K92.2 - GASTROINTESTINAL HEMORRHAGE, UNSPECIFIED Status: Acute Priority: High Current Visit: Yes Qualifiers: GI bleed type/associated pathology: unspecified gastrointestinal hemorrhage type Qualified Code(s): K92.2 - Gastrointestinal hemorrhage, unspecified (3) [place] (acute kidney injury) SNOMED Code(s): 42056685, 99151865 Code(s): N17.9 - ACUTE KIDNEY FAILURE, UNSPECIFIED Status: Acute Priority: High Current Visit: Yes (4) Hypercoagulable state SNOMED Code(s): 15540376 Code(s): D68.59 - OTHER PRIMARY THROMBOPHILIA Status: Acute Priority: High Current Visit: Yes (5) Diabetes mellitus SNOMED Code(s): 37233624 Code(s): E11.9 - TYPE 2 DIABETES MELLITUS WITHOUT COMPLICATIONS Status: Chronic Priority: Low Current Visit: Yes Qualifiers: Diabetes mellitus type: type 2 Diabetes mellitus loading machine tool setter insulin use: with loading machine tool setter use Diabetes mellitus complication status: with kidney complications Diabetes mellitus complication detail: with chronic kidney disease Chronic kidney disease stage: unspecified stage Qualified Code(s): E11.22 - Type 2 diabetes mellitus with diabetic chronic kidney disease; Z79.4 - residential (current) use of insulin (6) Obesity, BMI not known SNOMED Code(s): 475892294, 949037317 Code(s): E66.9 - OBESITY, UNSPECIFIED Status: Chronic Priority: High Current Visit: Yes Qualifiers: Obesity type: due to excess calories Obesity classification: adult class 3 (BMI >= 40) Serious obesity comorbidity presence: with serious comorbidity Body mass index: unspecified BMI Qualified Code(s): E66.01 - Morbid (severe) obesity due to excess calories - Problem List Review Problem List Initiated/Reviewed/Updated: Yes - My Orders Last 24 Hours: My Active Orders 04/20/21 16:30 Chest 1V Frontal [CR] Stat - Assessment/Plan Admission H&P: Please use this note as an admission H&P Last 24 Hours: My Active Orders 04/20/21 16:30 Chest 1V Frontal [CR] Stat Plan: pt will be admitted acute care with IV fluids, IV protonix, vitamin K, Palliative care as pt is critical and is no code. Dr. Miner is aware of admission.
[2021-04-20] MEDS ORDERED: Dextrose 5 %-0.2 % NaCl 1,000 ML IV SCH (19:30)
[2021-04-20] MEDS ORDERED: Pantoprazole 40 MG Vial IVPUSH SCH (20:00)
[2021-04-20 22:10] VITALS: PULSE 130
[2021-04-21 00:33] VITALS: BP 83/52
--- NOTE | 2021-04-28 07:31 | PCM.DCSUM1 ---
Discharge Summary - Hospital Course HPI Initial Comments: Pt was admitted from the ER earlier this evening. He was having hematemesis. He was coughing and SOB with some hypoxia. He is presumed to have aspirated while at the alf earlier as he was laying in bed and vomited earlier. He was admitted to the hospital and continued to have large amounts of black emesis and declined rapidly becoming more tachypneic and less responsive. Diagnosis: Stroke: No Modified [place] Scale: No Symptoms at All Modified [place] Scale Score: 0 - Discharge Data Discharge Date: 04/20/21 Discharge Disposition: 20 Condition: - Referral to Home Health Primary Care Physician: José Miguel Miner MD - Discharge Diagnosis/Problem(s) (1) Respiratory distress, acute SNOMED Code(s): 933045290 ICD Code: R06.03 - ACUTE RESPIRATORY DISTRESS Status: Acute Priority: High (2) GI bleed SNOMED Code(s): 23638758 ICD Code: K92.2 - GASTROINTESTINAL HEMORRHAGE, UNSPECIFIED Status: Acute Priority: High Qualifiers: GI bleed type/associated pathology: unspecified gastrointestinal hemorrhage type Qualified Code(s): K92.2 - Gastrointestinal hemorrhage, unspecified (3) [place] (acute kidney injury) SNOMED Code(s): 53572870, 86495030 ICD Code: N17.9 - ACUTE KIDNEY FAILURE, UNSPECIFIED Status: Acute Priority: High (4) Hypercoagulable state SNOMED Code(s): 10444612 ICD Code: D68.59 - OTHER PRIMARY THROMBOPHILIA Status: Acute Priority: High (5) Diabetes mellitus SNOMED Code(s): 25100393 ICD Code: E11.9 - TYPE 2 DIABETES MELLITUS WITHOUT COMPLICATIONS Status: Chronic Priority: Low Qualifiers: Diabetes mellitus type: type 2 Diabetes mellitus fdc insulin use: with oysterman use Diabetes mellitus complication status: with kidney complic ations Diabetes mellitus complication detail: with chronic kidney disease Chronic kidney disease stage: unspecified stage Qualified Code(s): E11.22 - Type 2 diabetes mellitus with diabetic chronic kidney disease; Z79.4 - long term acute care registered nurse (current) use of insulin (6) Obesity, BMI not known SNOMED Code(s): 192924081, 505951525 ICD Code: E66.9 - OBESITY, UNSPECIFIED Status: Chronic Priority: High Qualifiers: Obesity type: due to excess calories Obesity classification: adult class 3 (BMI >= 40) Serious obesity comorbidity presence: with serious comorbidity Body mass index: unspecified BMI Qualified Code(s): E66.01 - Morbid (severe) obesity due to excess calories - Discharge Plan *PRESCRIPTION DRUG MONITORING PROGRAM REVIEWED*: Not Applicable *COPY OF PRESCRIPTION DRUG MONITORING REPORT IN PATIENT GARY: Not Applicable Home Medications: Home Meds Lisinopril 5 mg PO DAILY 09/23/15 [History] Montelukast [Singulair] 10 mg PO BEDTIME 09/23/15 [History] Acetaminophen [Tylenol Extra Strength] 1,000 mg PO Q8H PRN 05/24/19 [History] Dextrose [Glutose 15] 15 - 20 g PO ASDIRECTED PRN 05/24/19 [History] Glucagon,Human Recombinant [Glucagon Emergency Kit] 1 mg IM DAILY PRN 05/24/19 [History] Liraglutide [Victoza] 1.8 ml SQ DAILY 05/24/19 [History] Menthol [Biofreeze] 1 applic TOP QID PRN 05/24/19 [History] Polyethylene Glycol 3350 [MiraLAX] 17 gm PO DAILY 05/24/19 [History] Simvastatin 20 mg PO BEDTIME 05/24/19 [History] Warfarin Sodium 7.5 mg PO WESA 05/24/19 [History] Warfarin Sodium 10 mg PO SUMOTUTHFR 05/24/19 [History] bisacodyL [Dulcolax] 5 - 10 mg PO DAILY PRN 05/24/19 [History] busPIRone HCl [busPIRone] 30 mg PO BID 05/24/19 [History] ARIPiprazole [Abilify] 20 mg PO DAILY 03/21/21 [History] Cyanocobalamin (Vitamin B-12) [Cyanocobalamin Injection] 1 ml IM ONETIME 03/21/21 [History] Furosemide [Lasix] 40 mg PO BID 03/21/21 [History] Insulin Aspart [NovoLOG] 35 units SUBCUT ACBREAKFAST 03/21/21 [History] Insulin Aspart [Novolog Flexpen] 35 units SUBCUT ACLUNCH 03/21/21 [History] Insulin Degludec [Tresiba] 70 units SUBCUT BID 03/21/21 [History] Insulin Lispro [HumaLOG] 40 mg SUBCUT BEDTIME 03/21/21 [History] [place] Carbonate [[place] Carbonate ER] 600 mg PO BEDTIME 03/21/21 [History] polyethylene glycoL 3350 [Gavilax] 8.5 gm PO ACDINNER 03/21/21 [History] Forms: ED Department Discharge Referrals: José Miguel Miner MD [Primary Care Provider] - - Discharge Summary/Plan Comment DC Time >30 min.: No Total # of Minutes for Discharge Time: 15 - General Info Date of Service: 04/20/21 - Review of Systems Pulmonary: Reports: Shortness of Breath Gastrointestinal: Reports: Abdominal Pain, Hematochezia - Patient Data Vitals - Most Recent: Last Vital Signs Temp 97.2 F 04/20/21 21:13 Pulse 130 H 04/20/21 21:13 Resp 40 H 04/20/21 21:13 BP 83/52 L 04/20/21 20:09 Pulse Ox 83 L 04/20/21 21:13 Weight - Most Recent: 495 lb Med Orders - Current: Current Medications Discontinued Medications Furosemide (Furosemide 40 Mg/4 Ml Vial) Confirm Administered Dose 80 mg .ROUTE .STK-MED ONE Stop: 04/20/21 16:15 Last Admin: 04/20/21 17:02 Dose: 80 mg Documented by: Sodium Chloride (Normal Saline) Confirm Administered Dose 500 mls @ as directed .ROUTE .STK-MED ONE Stop: 04/20/21 16:58 Last Admin: 04/20/21 17:23 Dose: Not Given Documented by: Sodium Chloride (Normal Saline) 500 mls @ 500 mls/hr IV ONETIME ONE Stop: 04/20/21 18:22 Last Admin: 04/20/21 17:24 Dose: 500 mls/hr Documented by: Dextrose/Sodium Chloride (Dextrose 5%-1/4 Ns) 1,000 mls @ 125 mls/hr IV ASDIRECTED LOLA Last Admin: 04/20/21 20:00 Dose: 125 mls/hr Documented by: Pantoprazole Sodium (Pantoprazole 40 Mg Vial) 40 mg IVPUSH Q12H [facility] Last Admin: 04/20/21 19:59 Dose: 40 mg Documented by: Phytonadione (Phytonadione 10 Mg/1 Ml Amp) 5 mg SUBCUT NOW ONE Stop: 04/20/21 19:26 Last Admin: 04/20/21 19:55 Dose: 5 mg Documented by: - Exam Quality Assessment: Reports: Supplemental Oxygen General: Reports: Severe Distress Lungs: Reports: Decreased Breath Sounds, Rhonchi Cardiovascular: Reports: Tachycardia GI/Abdominal Exam: Distended, Rigid, Abnormal Bowel Sounds Physical Findings Comments:: Pt was admitted and had NG placed with large amount of black fluid noted. He was a DNR per his request. He was kept comfortable with oxygen until time of his . HE had large amount of black emesis per NG. He eventually did pass away.
== END 2021-04-20 22:45 | disposition expired | DRG 378 ==
LOC: CC.ED 16:15 → UNDOADMIN 18:30 → CC.MS 18:30 → UNDODISIN 22:45
PROVIDERS: ADMIT Physician Assistant Medical; ATTEND Family Medicine
PROC: 0D9670Z Drainage of Stomach with Drainage Device, Via Natural or Artificial Opening (ICD-10-PCS; principal; 2021-04-20)
DX: K92.0 Hematemesis (principal); K92.2 Gastrointestinal hemorrhage, unspecified; N17.9 Acute kidney failure, unspecified; D68.59 Other primary thrombophilia; I13.0 Hypertensive heart and chronic kidney disease with heart failure and stage 1 through stage 4 chronic kidney disease, or unspecified chronic kidney disease; Z68.41 Body mass index [BMI] 40.0-44.9, adult; R06.03 Acute respiratory distress; Z20.822 Contact with and (suspected) exposure to COVID-19; E11.22 Type 2 diabetes mellitus with diabetic chronic kidney disease; I11.0 Hypertensive heart disease with heart failure; E66.01 Morbid (severe) obesity due to excess calories; Z66 Do not resuscitate; R32 Unspecified urinary incontinence; E11.40 Type 2 diabetes mellitus with diabetic neuropathy, unspecified; I69.354 Hemiplegia and hemiparesis following cerebral infarction affecting left non-dominant side; I69.328 Other speech and language deficits following cerebral infarction; I50.9 Heart failure, unspecified; E78.00 Pure hypercholesterolemia, unspecified; K59.09 Other constipation; R06.82 Tachypnea, not elsewhere classified; E11.42 Type 2 diabetes mellitus with diabetic polyneuropathy; F41.9 Anxiety disorder, unspecified; F31.9 Bipolar disorder, unspecified; F20.9 Schizophrenia, unspecified; F03.90 Unspecified dementia, unspecified severity, without behavioral disturbance, psychotic disturbance, mood disturbance, and anxiety; I87.2 Venous insufficiency (chronic) (peripheral); H26.9 Unspecified cataract; N18.9 Chronic kidney disease, unspecified; J45.909 Unspecified asthma, uncomplicated; Z86.73 Personal history of transient ischemic attack (TIA), and cerebral infarction without residual deficits; Z86.19 Personal history of other infectious and parasitic diseases; Z79.899 Other long term (current) drug therapy; Z79.4 Long term (current) use of insulin; Z79.82 Long term (current) use of aspirin; Z79.01 Long term (current) use of anticoagulants; Z88.1 Allergy status to other antibiotic agents; Z86.14 Personal history of Methicillin resistant Staphylococcus aureus infection
CPT/HCPCS: 36415; 71045; 74018; 80053; 82271; 83605; 83735; 83880; 84484; 85025; 85610; 86850; 86900; 86901; 86920; 86922; 93005; 93010; 99285-25; C9113; J1940; J3430; J7040; J7042; U0002